=== PATIENT | male | born 1990 | race Caucasian/White ===

== ENCOUNTER 2016-09-18 23:49 | Emergency (ER) | payer OTHER ==
[2016-09-18 23:58] VITALS: BP 139/81; PULSE 104; BMI 25.8
[2016-09-19] MEDS ORDERED: SODIUM CHLORIDE 0.9% 1000 ML INFUS.BAG IV ONE (00:47)
--- NOTE | 2016-09-19 01:07 | PDOC ---
History of Present Illness - General Chief Complaint: Pain, Acute Stated Complaint: FEELS LIKE HE IS FALLING/PRESSURE IN ARMS AND LEGS Time Seen by Provider: 09/19/16 00:45 - History of Present Illness Initial Comments: 09/19/16 06:27 smoked marijuana, usual supplier also played golf in heat been working out developed b/l forearm pain, nausea, vomiting, and cramps no fever/ chills symptoms x 1/2 day, worsening has not taken anything to relieve symptoms pmh: denies fhx: non-contrib ros: reviewed and otherwise negative oe/ anxious no diaphoresis nonicteric no adenopathy nl JVP rrr cta abd ntnd no LE edema no msk tenderness nl speech, nl gait a/p drug reaction versus heat exhaustion versus AGE symptomatically improved after 2L NS in ED Past History - Past Medical History Allergies/Adverse Reactions: Allergies Allergy/AdvReac Type Severity Reaction Status Date / Time No Known Allergies Allergy Verified 09/18/16 23:52 Home Medications: Ambulatory Orders NK [No Known Home Medication] 09/18/16 Other medical history: DENIES - Psycho/Social/Smoking Cessation Hx Anxiety: No Suicidal Ideation: No Smoking History: Current every day smoker Have you smoked in the past 12 months: Yes Number of Cigarettes Smoked Daily: 20 Information on smoking cessation initiated: Yes 'Breaking Loose' booklet given: 09/18/16 Hx Alcohol Use: Yes Drug/Substance Use Hx: Yes (MARIJUANA) Substance Use Type: Alcohol, Marijuana *Physical Exam - Vital Signs Last Vital Signs Temp Pulse Resp BP Pulse Ox 104 H 22 139/81 99 09/18/16 23:53 09/18/16 23:53 09/18/16 23:53 09/18/16 23:53 *DC/Admit/Observation/Transfer Diagnosis at time of Disposition: Vomiting Qualifiers: Vomiting type: unspecified Vomiting Intractability: non-intractable Nausea presence: with nausea Qualified Code(s): R11.2 - Nausea with vomiting, unspecified - Discharge Dispostion Disposition: HOME Condition at time of disposition: Stable - Referrals - Patient Instructions Printed Discharge Instructions: DI for Vomiting -- Adult - Post Discharge Activity
--- NOTE | 2016-09-20 09:23 | EKG ---
Test Reason : Blood Pressure : / mmHG Vent. Rate : 081 BPM Atrial Rate : 081 BPM P-R Int : 142 ms QRS Dur : 104 ms QT Int : 354 ms P-R-T Axes : 070 064 037 degrees QTc Int : 411 ms NORMAL SINUS RHYTHM WITH SINUS ARRHYTHMIA NON-SPECIFIC INTRA-VENTRICULAR CONDUCTION BLOCK NO PREVIOUS ECGS AVAILABLE Confirmed by MD MAY MARJORY ([id number]) on 09/20/2016 9:23:29 AM Referred By: MD DRIVER Confirmed By:JEFF MAY MD
== END 2016-09-19 01:20 | disposition home or self-care (01) ==
LOC: FER 23:49
DX: R11.2 Nausea with vomiting, unspecified (principal); F17.210 Nicotine dependence, cigarettes, uncomplicated
CPT/HCPCS: 93005; 93010; 99281-25